=== PATIENT | male | born 1970 | race Two or more races ===

== ENCOUNTER 2023-08-30 23:55 | Emergency (ER) | payer MEDICAID ==
[~2023-08-30] VITALS: Ht 180.3 cm; Wt 105.8 kg
[2023-08-31 00:06] VITALS: BP 158/97; PULSE 95; RESP 16; TEMP 98.7; O2SAT 99
[2023-09-03] MEDS ORDERED: LIDO5CRE2 TOP (03:47)
[2023-09-03] MEDS ORDERED: HYDR-3965 PO (03:47)
== END 2023-08-31 03:05 | disposition left against medical advice (07) ==
LOC: ER 23:56
DX: H83.2X1 Labyrinthine dysfunction, right ear (principal); Z53.21 Procedure and treatment not carried out due to patient leaving prior to being seen by health care provider

== ENCOUNTER 2023-10-02 20:25 | Emergency (ER) | payer MEDICAID ==
[~2023-10-02] VITALS: Ht 180.3 cm; Wt 100.0 kg
[~2023-10-02 20:25] MED LIST: HYDR-3965 PO; LIDO5CRE2 TOP
[2023-10-02 20:37] VITALS: BP 161/95; PULSE 93; RESP 16; TEMP 98; O2SAT 97
== END 2023-10-03 02:51 | disposition left against medical advice (07) ==
LOC: ER 20:25
DX: G50.1 Atypical facial pain (principal); M54.2 Cervicalgia; H66.90 Otitis media, unspecified, unspecified ear; Z53.21 Procedure and treatment not carried out due to patient leaving prior to being seen by health care provider

== ENCOUNTER 2023-10-26 18:55 | Emergency (ER) | payer MEDICAID ==
[~2023-10-26] VITALS: Ht 182.9 cm; Wt 110.0 kg
[~2023-10-26 18:55] MED LIST changes: +GABA300C PO; -HYDR-3965 PO
[2023-10-26 19:07] VITALS: BP 141/81; PULSE 88; RESP 14; TEMP 99.3; O2SAT 94
== END 2023-10-26 19:43 | disposition home or self-care (01) ==
LOC: ER 18:55
DX: R51.9 Headache, unspecified (principal); F22 Delusional disorders; Z79.899 Other long term (current) drug therapy
CPT/HCPCS: 99281

== ENCOUNTER 2023-11-23 20:41 | Emergency (ER) | payer MEDICAID ==
[~2023-11-23] VITALS: Ht 180.3 cm; Wt 95.5 kg
[2023-11-23 21:35] LABS: BASOPHILS # (AUTO) 0.1 X10'3 (0-0.2); BASOPHILS % (AUTO) 1.1 % (0-1); EOSINOPHILS # (AUTO) 0.2 X10'3 (0-0.9); HEMATOCRIT 46.6 % (42.0-52.0); HEMOGLOBIN 15.7 g/dl (14.0-17.9); LYMPHOCYTES # (AUTO) 2.5 X10'3 (1.1-4.8); LYMPHOCYTES % (AUTO) 23.2 % (21-51); MEAN CORPUSCULAR HEMOGLOBIN 30.3 PG (27.0-31.0); MEAN CORPUSCULAR HGB CONC 33.7 g/dL (33.0-36.5); MEAN CORPUSCULAR VOLUME 89.9 FL (78-98); MEAN PLATELET VOLUME 8.9 FL (7.4-10.4); MONOCYTES # (AUTO) 0.4 X10'3 (0-0.9); MONOCYTES % (AUTO) 3.6 % (2-12); NEUTROPHILS # (AUTO) 7.6 X10'3 (1.8-7.7); NEUTROPHILS % (AUTO) 70.1 % (42-75); PLATELET COUNT 258 X10'3 (140-440); RED BLOOD COUNT 5.18 X10'6 (4.70-6.10); RED CELL DISTRIBUTION WIDTH 13.6 % (11.5-14.5); WHITE BLOOD COUNT 10.8 X10'3 (4.5-11.0)
[2023-11-23 21:49] LABS: ALBUMIN 3.8 G/DL (3.4-5.0); ANION GAP 11 (8-16); BLOOD UREA NITROGEN 14 MG/DL (7-18); BUN/CREATININE RATIO 13.2 (10.0-20.0); CALCIUM 9.5 MG/DL (8.5-10.1); CHLORIDE 106 MMOL/L (99-107); CREATININE 1.06 MG/DL (0.60-1.10); GLUCOSE 128 MG/DL (70-104); POTASSIUM 3.9 MMOL/L (3.5-5.1); SODIUM 140 MMOL/L (135-145); eCRCL 86 ML/MIN; eGFR 73 ML/MIN
[2023-11-23 21:54] LABS: PRO BRAIN NATRIURETIC PEPTIDE < 30 PG/ML (0-125)
[2023-11-23] MEDS ORDERED: GABA300C PO (22:58)
[2023-11-23 23:09] VITALS: BP 149/98; PULSE 90; RESP 22; TEMP 98.4; O2SAT 95
== END 2023-11-23 23:12 | disposition home or self-care (01) ==
LOC: ER 20:42
DX: F22 Delusional disorders (principal); F41.0 Panic disorder [episodic paroxysmal anxiety]; G50.1 Atypical facial pain; Z79.899 Other long term (current) drug therapy
CPT/HCPCS: 36415; 71045; 80048; 83880; 84484; 85025; 93005; 99285

== ENCOUNTER 2024-05-17 07:30 | Emergency (ER) | payer MEDICAID ==
[~2024-05-17] VITALS: Ht 182.9 cm; Wt 88.0 kg
[2024-05-17] MEDS ORDERED: GABA300C PO (10:14)
[2024-05-17 10:38] VITALS: BP 134/78; PULSE 74; RESP 16; TEMP 98.3; O2SAT 99
== END 2024-05-17 10:39 | disposition home or self-care (01) ==
LOC: ER 07:31
DX: M79.2 Neuralgia and neuritis, unspecified (principal); Z76.0 Encounter for issue of repeat prescription
CPT/HCPCS: 99281

== ENCOUNTER 2024-10-10 13:37 | Emergency (ER) | payer MEDICAID ==
[~2024-10-10] VITALS: Ht 182.9 cm; Wt 102.7 kg
--- NOTE | 2024-10-10 14:00 | Physician Documentation ---
History of Present Illness ~ Chief Complaint: Arm Pain Stated Complaint: ARM PAIN Time Seen by MD: 14:09 Source: patient, RN/ HPI Patient is seen today with complaints of pain in his right elbow. Patient states he has been picking in his face hula and feels that flared of his lateral elbow. Patient denies any injury to his right elbow. He has no other concern or complaint at this time. He denies any swelling or warmth or erythema of the right elbow. He has no other concern or complaint at this time. He states he does have an appointment with physical therapy coming up soon for his left shoulder and states he likely will be able to start PT in his right elbow as well at that time. Tetanus within 5 years: No Medication Reconciliation Allergies: Coded Allergies: No Known Allergies (Unverified , 08/31/23) Scheduled Gabapentin (Neurontin), 1 CAP PO BID Gabapentin (Neurontin), 1 CAP PO BID Gabapentin (Neurontin), 1 CAP PO BID Lidocaine/Prilocaine (Lidocaine-Prilocaine Cream), 1 GM TOP DAILY Past Medical History Past Medical History: No Pertinent History Past Surgical History: no surgical history Alcohol Use: None Review of Systems Constitutional: Denies: chills, fever, weakness Eyes: Denies: pain, blurred vision ENT: Denies: ear pain, nose pain, throat pain, mouth pain Respiratory: Denies: cough, shortness of breath Cardiovascular: Denies: chest pain, palpitations Gastrointestinal: Denies: abdominal pain, nausea, vomiting Genitourinary: Denies: burning, dysuria Male Genitalia: Denies: penile discharge, testicular pain Neurological: Denies: headache, dizziness Musculoskeletal: Denies: pain, swelling Integumentary: Denies: rash, lesions Allergic/Immunologic: Denies: hives, itching Hematologic/Lymphatic: Denies: no symptoms reported Psychiatric: Denies: depression, anxiety Physical Exam Vital Signs: Temperature: 97.8, Source: Temporal, Heart Rate: 87, Respiratory Rate: 18, BP: 127/87, Pulse Oximetry: 98, Weight: 102.730 Oxygen Flow Rate: 0 Physical Exam General: Awake and Alert, no acute distress. HEENT: Conjunctiva pink, Sclera clear, Mucus Membranes moist. Neck: Supple without masses and tenderness. Resp: Unlabored. Lungs clear to auscultation bilaterally. Heart: Regular Rate and rhythm, normal S1 and S2 without murmur, rub or gallop. Musculoskeletal: Patient on exam does have tenderness to palpation of the right elbow lateral epicondyle consistent with tennis elbow or lateral epicondylitis. Patient is neurovascularly intact distally of the right upper extremity. Motor function is intact. I do not appreciate any erythema or swelling of the elbow or warmth. Extremities: No cyanosis,clubbing or edema. Skin: Warm and Dry. Progress Results/Orders Results/Orders Vital Signs 10/10/24 13:41 Temp 97.8 Pulse 87 Resp 18 B/P (MAP) 127/87 Pulse Ox 98 O2 Flow Rate 0 EKG/XRAY/CT/US/VASC/MRI Bone/Soft Tissue X-Ray (Ext.) : Additional Comment X-ray of right elbow shows no sign of acute fracture, bones in anatomic alignment, no osteolytic or blastic lesions. DIAGNOSTIC RADIOLOGY Patient: RIVERA THAPA Medical Record: [id number] [facility] : 1970, Age: 54 Sex: Male Location: ER Patient Status: [facility] ER Service Date/Time: 10/10/24/ 1343 Ordering Physician: SID DUVALL MD Exam: ELBOW, COMPLETE (3VW MIN) CLINICAL INDICATION: ELBOW PAIN TECHNIQUE: 1 radiographic views of the right elbow were obtained. Comparison: None FINDINGS/IMPRESSION: There is no evidence of acute fracture or dislocation. The visualized joint space is well maintained. The alignment is anatomical. There is no radiopaque foreign body. Electronically Signed by:ISMA JOSEPH MD Date & Time: 10/10/241438 Dictated by: ISMA JOSEPH MD Dictation date and time: 10/10/24 143 Primary Care Provider: NO PRIMARY CARE PROVIDER cc: SID DUVALL MD ~ Medical Decision Making Findings Patient is seen today with complaints of pain in his right elbow. Patient state s he has been picking in his face hula and feels that flared of his lateral elbow. Patient denies any injury to his right elbow. He has no other concern or complaint at this time. He denies any swelling or warmth or erythema of the right elbow. He has no other concern or complaint at this time. He states he does have an appointment with physical therapy coming up soon for his left shoulder and states he likely will be able to start PT in his right elbow as well at that time. X-ray of right elbow shows no sign of acute fracture. Patient likely has tennis elbow of the right elbow and will follow up with orthopedic for further eval and treatment and will get referral for physical therapy of the right elbow as well as the left shoulder. Patient will return to ED with any worsening, concerning or changing symptoms. Patient declined Toradol shot or pain injection or a prescription of any pain meds at this time. Departure Disposition: HOME / SELF CARE / HOMELESS Impression: Primary Impression: Tennis elbow Qualified Codes: M77.11 - Lateral epicondylitis, right elbow Condition: Stable Discharge Instructions: Tendinitis Additional Instructions: X-ray of right elbow shows no sign of acute fracture. Patient likely has tennis elbow of the right elbow and will follow up with orthopedic for further eval and treatment and will get referral for physical therapy of the right elbow as well as the left shoulder. Patient will return to ED with any worsening, concerning or changing symptoms. I strongly advised significant activity modification. Referrals: NO PRIMARY CARE PROVIDER (PCP) Signature Scribe Signature: No scribe Attestation: No scribe MARIA ISABEL PALMA NP Oct 10, 2024 14:00 ANASTASIIA HUANG PAC Oct 10, 2024 14:57
--- NOTE | 2024-10-10 14:42 | RADIOLOGY REPORT ---
CLINICAL INDICATION: ELBOW PAIN TECHNIQUE: 1 radiographic views of the right elbow were obtained. Comparison: None FINDINGS/IMPRESSION: There is no evidence of acute fracture or dislocation. The visualized joint space is well maintained. The alignment is anatomical. There is no radiopaque foreign body.
[2024-10-10 16:09] VITALS: BP 138/95; PULSE 70; RESP 14; TEMP 97.8; O2SAT 98
== END 2024-10-10 16:11 | disposition home or self-care (01) ==
LOC: ER 13:38
DX: M77.11 Lateral epicondylitis, right elbow (principal)
CPT/HCPCS: 73080; 99283

== ENCOUNTER 2025-01-30 00:56 | Emergency (ER) | payer MEDICAID ==
[~2025-01-30] VITALS: Ht 180.3 cm; Wt 106.4 kg
[2025-01-30 01:01] VITALS: BP 147/98; TEMP 98.4; O2SAT 98
[2025-01-30] MEDS ORDERED: CEPH-585 PO (01:21)
--- NOTE | 2025-01-30 01:22 | Physician Documentation ---
History of Present Illness ~ Chief Complaint: Facial Swelling Stated Complaint: FACIAL PAIN Time Seen by MD: 01:17 HPI Patient presents to the emergency room with concerns for plastic in his face. He has been seen here multiple times for this as well as other ERs and has had multiple imaging performed. The consensus is that patient is delusional. He does pick at his face though and it looks like swelling redness as occurred to the right of his forehead. Tetanus Within 5 Years: No Medication Reconciliation Allergies: Coded Allergies: No Known Allergies (Unverified , 01/30/25) Scheduled Gabapentin (Neurontin), 1 CAP PO BID Gabapentin (Neurontin), 1 CAP PO BID Gabapentin (Neurontin), 1 CAP PO BID Lidocaine/Prilocaine (Lidocaine-Prilocaine Cream), 1 GM TOP DAILY Past Medical History Past Medical History: No Pertinent History Past Surgical History: no surgical history Alcohol Use: None Review of Systems ROS All review of systems negative except as per HPI Physical Exam Vital Signs: Temperature: 98.4, Source: Oral, Heart Rate: 72, Respiratory Rate: 16, BP: 147/98, Pulse Oximetry: 98, Weight: 106.400 Physical Exam General: Patient is awake, alert, oriented x4 in no acute distress and well appearing.~ Head: Normocephalic and atraumatic. Eyes: Conjunctival normal. EOMI. PERRL. ENT: Mucous membranes moist. Some swelling and erythema to right forehead. No fluctuance Neck: Supple, trachea is midline. Chest: Clear to auscultation bilaterally without rales, rhonchi, or wheezes. There is no accessory muscle use or retractions. Cardiac: RRR without murmurs, gallops, or rubs. Progress Results/Orders Results/Orders Vital Signs 01/30/25 01:01 Temp 98.4 Pulse 72 Resp 16 B/P (MAP) 147/98 Pulse Ox 98 Medical Decision Making Additional information obtaine: old records Findings Patient presents to the emergency room as per HPI. We will treat him for early cellulitis. i do not feel emergent labs or imaging is necessary Differential Dx:Considerations: Include: Abrasion, Contusion, Cerebral contusion, Cervical spine injury, Closed head injury, Encephalopathy, Foreign body, Fracture, facial, Intoxication-alcohol, Intoxication-other drug, Laceration, Other Departure Disposition: HOME / SELF CARE / HOMELESS Impression: Primary Impression: Cellulitis Condition: Stable Discharge Instructions: Cellulitis, Adult, [id number] Referrals: NO PRIMARY CARE PROVIDER (PCP) Prescriptions Cephalexin*Monohydrate* (Keflex*) 500 Mg Capsule 1 CAP PO Q12H for 10 Days, #20 CAP Prov: ALFREDO ART MD 01/30/25 Signature Scribe Signature: No scribe Attestation: The note accurately reflects work and decisions made by me.Alfredo Art MD 01/30/25 01:21 ALFREDO ART MD Jan 30, 2025 01:22
[2025-01-30 01:36] VITALS: PULSE 72; RESP 18
== END 2025-01-30 01:38 | disposition home or self-care (01) ==
LOC: ER 00:57
DX: L03.811 Cellulitis of head [any part, except face] (principal); Z79.899 Other long term (current) drug therapy
CPT/HCPCS: 99283